=== PATIENT | male | born 1990 | race Hispanic/Latino ===

== ENCOUNTER 2018-07-29 21:51 | Emergency (ER) | payer OTHER ==
[~2018-07-29] VITALS: Ht 170.2 cm; Wt 93.0 kg
--- OUTSIDE RECORDS SUMMARY | 2018-07-29 21:54 | XMS REPORT | Summary of Care ---
Author Author [facility] Organization [facility] Address Unknown Phone Unavailable Encounter MARYCRUZ Bar(CHARLEY) [id number] Date(s): 02/20/15 - 02/21/15 [facility] [address] [place] [address]- Discharge Diagnosis: Acute back pain Discharge Diagnosis: Lumbar strain Discharge Disposition: Home Attending Physician: Orlando Shelton MD Vital Signs Most recent to 1 oldest [Reference Range]: Temperature Oral 97.7 DegF [96.4-99.1 DegF] (02/20/15 10:26 PM) Most recent to 1 oldest [Reference Range]: Blood Pressure 147/99 mmHg [90-140/60-90 mmHg] *HI* (02/20/15 10:26 PM) Most recent to 1 oldest [Reference Range]: Respiratory Rate 18 BRMIN [14-20 BRMIN] (02/20/15 10:26 PM) Most recent to 1 oldest [Reference Range]: Peripheral Pulse 87 bpm Rate [60-100 bpm] (02/20/15 10:26 PM) Most recent to 1 oldest [Reference Range]: Weight 81.818 kg (02/20/15 10:26 PM) Problem List No data available for this section Allergies, Adverse Reactions, Alerts Substance Reaction Severity Status NKDA Active Medications Ativan 1 mg, Route: IVP, Drug form: INJ, ONCE, Dosing Weight 81.818, kg, Priority: STAT , Start date: 02/21/15 5:56:00, Stop date: 02/21/15 5:56:00 Start Date: 02/21/15 Stop Date: 02/21/15 Status: Completed Flexeril 10 mg oral tablet 10 mg, PO, TID, PRN Muscle Spasm, X 10 day, # 30 tab, 0 Refill(s) Start Date: 02/21/15 Stop Date: 03/03/15 Status: Ordered morphine Sulfate 4 mg, 2 mL, Route: IVP, Drug form: INJ, ONCE, Dosing Weight 81.818, kg, Priority : STAT, Start date: 02/20/15 23:41:00, Stop date: 02/20/15 23:41:00 Notes: (Same as:MORPhine Sulfate) Start Date: 02/20/15 Stop Date: 02/21/15 Status: Completed Ultram 50 mg oral tablet 50 mg=1 tab, PO, Q4H, PRN pain, X 3 day, # 20 tab, 0 Refill(s) Start Date: 02/21/15 Stop Date: 02/24/15 Status: Ordered Zofran 4 mg, 2 mL, Route: IVP, Drug form: INJ, ONCE, Dosing Weight 81.818, kg, Priority : STAT, Start date: 02/20/15 23:41:00, Stop date: 02/20/15 23:41:00 Notes: (Same as: Zofran) MEDICATION WASTE Product Size: 4 mgProduct Was charlette: ___ mg Start Date: 02/20/15 Stop Date: 02/21/15 Status: Completed Results ELECTROLYTES Most recent to 1 oldest [Reference Range]: Sodium Lvl [135-145 137 mEq/L mEq/L] (02/21/15 12:01 AM) Potassium Lvl 3.8 mEq/L [3.5-5.1 mEq/L] (02/21/15 12:01 AM) Chloride Lvl [95-109 105 mEq/L mEq/L] (02/21/15 12:01 AM) CO2 [24-32 mEq/L] 25 mEq/L (02/21/15 12:01 AM) AGAP [10.0-20.0 10.8 mEq/L mEq/L] (02/21/15 12:01 AM) CHEM PANEL Most recent to 1 oldest [Reference Range]: Creatinine Lvl 1.0 mg/dL [0.5-1.4 mg/dL] (02/21/15 12:01 AM) eGFR 103 mL/min/1.73m2 1 *NA* (02/21/15 12:01 AM) BUN [7-22 mg/dL] 20 mg/dL (02/21/15:01 AM) Glucose Lvl [70-99 103 mg/dL mg/dL] *HI* (02/21/15: AM) Calcium Lvl 8.8 mg/dL [8.5-10.5 mg/dL] (02/21/15:01 AM) 1Result Comment: The eGFR is calculated using the CKD-EPI formula. In most young, healthy individuals the eGFR will be >90 mL/min/1.73m2. The eGFR declines with age. An eGFR of 60-89 may be normal in some populations, particularly the elderly, for whom the CKD-EPI formula has not been extensively validated. Use of the eGFR is not recommended in the following populations: Individuals with unstable creatinine concentrations, including patients and those with serious co-morbid conditions. Patients with extremes in muscle mass or diet. The data above are obtained from the National Kid[employer] Disease Education Program ( NKDEP) which additionally recommends that when the eGFR is used in patients with extremes of body mass index for purposes of drug dosing, the eGFR should be mul tiplied by the estimated BMI. HEMATOLOGY Most recent to 1 oldest [Reference Range]: WBC [3.7-10.4 K/CMM] 9.6 K/CMM (02/21/15 12:01 AM) RBC [4.70-6.10 5.73 M/CMM M/CMM] (02/21/15:01 AM) Hgb [14.0-18.0 g/dL] 17.0 g/dL (02/21/15:01 AM) Hct [42.0-54.0 %] 50.1 % (02/21/15:01 AM) MCV [80.0-94.0 fL] 87.3 fL (02/21/15:01 AM) MCH [27.0-31.0 pg] 29.6 pg (02/21/15:01 AM) MCHC [32.0-36.0 33.9 g/dL g/dL] (02/21/15: AM) RDW [11.5-14.5 %] 12.8 % (02/21/15: AM) Platelet [133-450 90 K/CMM K/CMM] *LOW* (8/20/15 12:01 AM) MPV [7.4-10.4 fL] 11.8 fL *HI* (02/21/15:01 AM) Segs [45.0-75.0 %] 65.5 % (02/21/15 12:01 AM) Lymphocytes 25.3 % [20.0-40.0 %] (02/21/15:01 AM) Monocytes [2.0-12.0 6.8 % %] (02/21/15 12:01 AM) Eosinophils [0.0-4.0 1.7 % %] (02/21/15:01 AM) Basophils [0.0-1.0 0.7 % %] (02/21/15:01 AM) Segs-Bands # 6.3 K/CMM [1.5-8.1 K/CMM] (02/21/15 12:01 AM) Lymphocytes # 2.4 K/CMM [1.0-5.5 K/CMM] (02/21/15:01 AM) Monocytes # [0.0-0.8 0.7 K/CMM K/CMM] (02/21/15 12:01 AM) Eosinophils # 0.2 K/CMM [0.0-0.5 K/CMM] (02/21/15 12:01 AM) Basophils # [0.0-0.2 0.1 K/CMM K/CMM] (02/21/15 12:01 AM) RBC Morph Normal (02/21/15 12:01 AM) Plt Morph See Note (02/21/15:01 AM) Large Plt [None Moderate Seen] *ABN* (02/21/15:01 AM) Immunizations No data available for this section Procedures No data available for this section Social History Social History Type Response Smoking Status Never smoker; Exposure to Tobacco Smoke None; Cigarette Smoking Last 365 Days No; Reg Smoking Cessation Counseling No Assessment and Plan No data available for this section
--- OUTSIDE RECORDS SUMMARY | 2018-07-29 21:54 | XMS REPORT | Continuity of Care Document ---
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 Value Date Comments Source Respitory Rate 19 12/09/2015 [facility] Systolic (mm Hg) 119 12/09/2015 [facility] Diastolic (mm Hg) 56 12/09/2015 [facility] Temperature Oral (F) 97.4 F 12/09/2015 [facility] Systolic (mm Hg) 119 12/09/2015 [facility] Diastolic (mm Hg) 77 12/09/2015 [facility] Respitory Rate 15 12/09/2015 [facility] Systolic (mm Hg) 112 12/09/2015 [facility] Diastolic (mm Hg) 64 12/09/2015 [facility] Respitory Rate 17 12/09/2015 [facility] Temperature Oral (F) 97.4 F 12/09/2015 [facility] Temperature Oral (F) 97.5 F 12/08/2015 [facility] Heart Rate 102 12/08/2015 [facility] Weight 81.818 12/08/2015 [facility] Heart Rate 98 12/08/2015 [facility] Height 172.72 cm 12/08/2015 [facility] BMI Calculated 27.43 12/08/2015 [facility] Temperature Oral (F) 98.2 F 12/08/2015 [facility] Heart Rate 78 12/08/2015 [facility] Respitory Rate 18 12/08/2015 [facility] Systolic (mm Hg) 142 12/08/2015 [facility] Diastolic (mm Hg) 81 12/08/2015 [facility] Heart Rate 80 12/07/2015 [facility] Respitory Rate 18 12/07/2015 [facility] Weight 86.364 12/07/2015 [facility] Systolic (mm Hg) 147 12/07/2015 [facility] Diastolic (mm Hg) 87 12/07/2015 [facility] Height 167.64 cm 12/07/2015 [facility] Temperature Oral (F) 98.3 F 12/07/2015 [facility] BMI Calculated 30.73 12/07/2015 [facility] Weight 100 09/25/2015 [facility] BMI Calculated 35.58 09/25/2015 [facility] Respitory Rate 18 09/25/2015 [facility] Systolic (mm Hg) 148 09/25/2015 [facility] Diastolic (mm Hg) 86 09/25/2015 [facility] Heart Rate 79 09/25/2015 [facility] Height 167.64 cm 09/25/2015 [facility] Temperature Oral (F) 98.8 F 09/25/2015 [facility] Temperature Oral (F) 98.2 F 05/22/2015 [facility] Systolic (mm Hg) 119 05/22/2015 [facility] Diastolic (mm Hg) 72 05/22/2015 [facility] Respitory Rate 18 05/22/2015 [facility] Heart Rate 69 05/22/2015 [facility] Temperature Oral (F) 98.7 F 05/22/2015 [facility] Heart Rate 72 05/22/2015 [facility] Systolic (mm Hg) 122 05/22/2015 [facility] Diastolic (mm Hg) 78 05/22/2015 [facility] Respitory Rate 20 05/22/2015 [facility] Weight 88.636 05/22/2015 [facility] Weight 81.818 02/21/2015 [facility] Temperature Oral (F) 97.7 F 02/21/2015 [facility] Heart Rate 87 02/21/2015 [facility] Respitory Rate 18 02/21/2015 [facility] Systolic (mm Hg) 147 02/21/2015 [facility] Diastolic (mm Hg) 99 02/21/2015 [facility] Encounters Location Location Details Encounter Type Encounter Number Reason For Visit Attending Provider ADM Date DC Date Status Source [facility] [id number] Orlando Cat 02/21/2015 02/21/2015 [facility] [id number] Kyaw Wilson 05/22/2015 05/22/2015 [facility] [id number] Obey Hendrickson 09/25/2015 09/25/2015 [facility] [id number] Camilo Doyle 12/07/2015 12/08/2015 [facility] Inpatient [id number] Camilo Doyle 12/08/2015 12/09/2015 [facility] Procedures Procedure Code Date Perfomer Comments Source
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
--- OUTSIDE RECORDS SUMMARY | 2018-07-29 21:54 | XMS REPORT | Summary of Care ---
Author Author [facility] Organization [facility] Address Unknown Phone Unavailable Encounter MARYCRUZ Bar(CHARLEY) [id number] Date(s): 12/07/15 - 12/07/15 [facility] [address] [place] [address]- [phone] Discharge Disposition: DC[facility] to [facility] Attending Physician: Camilo Doyle MD Vital Signs Most recent to 1 2 oldest [Reference Range]: Height 167.64 cm (12/07/15 4:14 PM) Temperature Oral 98.2 DegF 98.3 DegF [96.4-99.1 DegF] (12/07/15 7:15 PM) (12/07/15 4:14 PM) Blood Pressure 142/81 mmHg 147/87 mmHg [90-140/60-90 mmHg] *HI* *HI* (12/07/15 7:15 PM) (12/07/15 4:14 PM) Respiratory Rate 18 BRMIN 18 BRMIN [14-20 BRMIN] (12/07/15 7:15 PM) (12/07/15 4:14 PM) Peripheral Pulse 78 bpm 80 bpm Rate [60-100 bpm] (12/07/15 7:15 PM) (12/07/15 4:14 PM) Weight 86.364 kg (12/07/15 4:14 PM) Body Mass Index 30.73 m2 (12/07/15 4:14 PM) Problem List Condition Effective Dates Status Health Status Informant Cerebral Active palsy(Confirmed) Allergies, Adverse Reactions, Alerts Substance Reaction Severity Status shellfish Active Medications *Calcium gluconate 2.5% topical gel (compounded) *Calcium gluconate 2.5% topical gel (compounded), 50 mL, Drug form: MISC, Route: TOP, PRN, PRN Other -See Comment, 12/07/15 17:52:00 CDT, Stop date: 12/08/15 17 :51:00 CDT Start Date: 12/07/15 Stop Date: 12/07/15 Status: Discontinued calcium gluconate + Sodium Chloride 0.9% IV 50 mL 1,000 mg, 10 mL, Route: IVPB, ONCE, Dosing Weight 86.364, kg, Start date: 17:03:00 CDT, Stop date: 12/07/15 17:03:00 CDT Notes: WASTE: F/P - Sink; E - Municipal Trash Bin Start Date: 12/07/15 Stop Date: 12/07/15 Status: Completed calcium gluconate 600 mg + empty container 1 ea + sodium chloride 54 mL Route: Each Affected Eye, Drug form: INJ, PRN, PRN Other -See Comment, Start anika e: 12/07/15 17:35:00 CDT, Duration: 2 hr, Stop date: 12/07/15 19:45:00 CDT Notes: WASTE: F/P - Sink; E - Municipal Trash Bin Start Date: 12/07/15 Stop Date: 12/07/15 Status: Completed hydromorphone 1 mg, Route: IM, ONCE, Dosing Weight 86.364, kg, Priority: STAT, Start date: 10/18 16:46:00 CDT, Stop date: 12/07/15 16:46:00 CDT Start Date: 12/07/15 Stop Date: 12/07/15 Status: Discontinued hydromorphone 1 mg, Route: IV, ONCE, Dosing Weight 86.364, kg, Start date: 12/07/15 16:57:00 C DT, Stop date: 12/07/15 16:57:00 CDT Start Date: 12/07/15 Stop Date: 12/07/15 Status: Completed Sodium Chloride 0.9% (Bolus) IV 1,000 mL, 1000 ml/hr, Infuse Over: 1 hr, Route: IV, 1,000, Drug form: INJ, ONCE, Priority: STAT, Dosing Weight 86.364 kg, Start date: 12/07/15 17:03:00 CDT, Dur ation: 1 doses or times, Stop date: 12/07/15 17:03:00 CDT Start Date: 12/07/15 Stop Date: 12/07/15 Status: Completed Results ELECTROLYTES Most recent to 1 oldest [Reference Range]: Sodium Lvl [135-145 139 mEq/L mEq/L] (12/07/15 5:21 PM) Potassium Lvl 4.0 mEq/L [3.5-5.1 mEq/L] (12/07/15 5:21 PM) Chloride Lvl [95-109 103 mEq/L mEq/L] (12/07/15 5:21 PM) CO2 [24-32 mEq/L] 29 mEq/L (12/07/15 5:21 PM) AGAP [10.0-20.0 11.0 mEq/L mEq/L] (12/07/15 5:21 PM) CHEM PANEL Most recent to 1 oldest [Reference Range]: Creatinine Lvl 1.20 mg/dL [0.50-1.40 mg/dL] (12/07/15 5:21 PM) eGFR 82 mL/min/1.73m2 1 *NA* (12/07/15 5:21 PM) BUN [7-22 mg/dL] 13 mg/dL (12/07/15 5:21 PM) B/C Ratio [6-25] 11 (12/07/15 5:21 PM) Glucose Lvl [70-99 92 mg/dL mg/dL] (12/07/15 5:21 PM) Total Protein 7.7 g/dL [6.4-8.4 g/dL] (12/07/15 5:21 PM) Albumin Lvl [3.5-5.0 4.1 g/dL g/dL] (12/07/15 5:21 PM) Globulin [2.0-4.0 3.6 g/dL g/dL] (12/07/15 5:21 PM) A/G Ratio [0.7-1.6] 1.1 (12/07/15 5:21 PM) Calcium Lvl 8.4 mg/dL [8.5-10.5 mg/dL] *LOW* (12/07/15 5:21 PM) ALT [0-65 unit/L] 56 unit/L (12/07/15 5:21 PM) AST [0-37 unit/L] 25 unit/L (12/07/15 5:21 PM) Alk Phos [39-136 79 unit/L unit/L] (12/07/15 5:21 PM) Bili Total [0.2-1.3 0.5 mg/dL mg/dL] (12/07/15 5:21 PM) 1Result Comment: The eGFR is calculated using [...] 1 oldest [Reference Range]: WBC [3.7-10.4 K/CMM] 9.2 K/CMM (12/07/15 5:21 PM) RBC [4.70-6.10 6.12 M/CMM M/CMM] *HI* (12/07/15 5:21 PM) Hgb [14.0-18.0 g/dL] 17.2 g/dL (12/07/15 5:21 PM) Hct [42.0-54.0 %] 52.5 % (12/07/15 5:21 PM) MCV [80.0-94.0 fL] 85.8 fL (12/07/15 5:21 PM) MCH [27.0-31.0 pg] 28.1 pg (12/07/15 5:21 PM) MCHC [32.0-36.0 32.7 g/dL g/dL] (12/07/15 5:21 PM) RDW [11.5-14.5 %] 13.2 % (12/07/15 5:21 PM) Platelet [133-450 81 K/CMM K/CMM] *LOW* (12/07/15 5:21 PM) MPV [7.4-10.4 fL] 12.1 fL *HI* (12/07/15 5:21 PM) Segs [45.0-75.0 %] 63.1 % (12/07/15 5:21 PM) Lymphocytes 24.4 % [20.0-40.0 %] (12/07/15 5:21 PM) Monocytes [2.0-12.0 9.4 % %] (12/07/15 5:21 PM) Eosinophils [0.0-4.0 2.5 % %] (12/07/15 5:21 PM) Basophils [0.0-1.0 0.6 % %] (12/07/15 5:21 PM) Segs-Bands # 5.8 K/CMM [1.5-8.1 K/CMM] (12/07/15 5:21 PM) Lymphocytes # 2.2 K/CMM [1.0-5.5 K/CMM] (12/07/15 5:21 PM) Monocytes # [0.0-0.8 0.9 K/CMM K/CMM] *HI* (12/07/15 5:21 PM) Eosinophils # 0.2 K/CMM [0.0-0.5 K/CMM] (12/07/15 5:21 PM) Basophils # [0.0-0.2 0.1 K/CMM K/CMM] (12/07/15 5:21 PM) RBC Morph Normal (12/07/15 5:21 PM) Large Plt [None Moderate Seen] *ABN* (12/07/15 5:21 PM) Immunizations Vaccine Date Refusal Reason diphtheria/pertussis, acel/tetanus adult 12/08/15 Procedures No data available for this section Social History Social History Type Response Smoking Status Current some day smoker; Type: Cigarettes; Lives with someone who smokes; Cigarette Smoking Last 365 Days No; Reg Smoking Cessation Counseling No Assessment and Plan No data available for this section
--- OUTSIDE RECORDS SUMMARY | 2018-07-29 21:54 | XMS REPORT | Summary of Care ---
Author Author [facility] Organization [facility] Address Unknown Phone Unavailable Encounter MARYCRUZ Bar(CHARLEY) [id number] Date(s): 05/21/15 - 05/22/15 [facility] [address] [place] [address]- Discharge Diagnosis: Acute pharyngitis, unspecified Discharge Disposition: Home Attending Physician: Kyaw Wilson MD Vital Signs Most recent to 1 2 oldest [Reference Range]: Temperature Oral 98.2 DegF 98.7 DegF [96.4-99.1 DegF] (05/22/15 12:22 AM) (05/21/15 10:02 PM) Blood Pressure 119/72 mmHg 122/78 mmHg [90-140/60-90 mmHg] (05/22/15 12:22 AM) (05/21/15 10:02 PM) Respiratory Rate 18 BRMIN 20 BRMIN [14-20 BRMIN] (05/22/15 12:22 AM) (05/21/15 10:02 PM) Peripheral Pulse 69 bpm 72 bpm Rate [60-100 bpm] (05/22/15 12:22 AM) (05/21/15 10:02 PM) Weight 88.636 kg (05/21/15 10:02 PM) Problem List Condition Effective Dates Status Health Status Informant Cerebral Active palsy(Confirmed) Allergies, Adverse Reactions, Alerts Substance Reaction Severity Status NKDA Active Medications dexamethasone 8 mg, Route: IM, ONCE, Dosing Weight 88.636, kg, Priority: STAT, Start date: 22:15:00, Stop date: 05/21/15 22:15:00 Start Date: 05/21/15 Stop Date: 05/21/15 Status: Completed ketOROLAC 60 mg, Route: IM, Drug form: INJ, ONCE, Dosing Weight 88.636, kg, Priority: STAT , Start date: 05/21/15 22:15:00, Stop date: 05/21/15 22:15:00 Start Date: 05/21/15 Stop Date: 05/21/15 Status: Completed Results RAPID Most recent to 1 oldest [Reference Range]: Grp A Strep Scr Negative [Negative] (05/21/15 11:04 PM) Immunizations No data available for this section Procedures No data available for this section Social History Social History Type Response Smoking Status Never smoker; Exposure to Tobacco Smoke None; Cigarette Smoking Last 365 Days No; Reg Smoking Cessation Counseling No Assessment and Plan No data available for this section
--- OUTSIDE RECORDS SUMMARY | 2018-07-29 21:54 | XMS REPORT | Summary of Care ---
Author Author [facility] Organization [facility] Address Unknown Phone Unavailable Encounter MARYCRUZ Bar(CHARLEY) [id number] Date(s): 09/24/15 - 09/25/15 [facility] [address] [place] [address]- Discharge Disposition: Elopement Attending Physician: Obey Hendrickson MD Vital Signs Most recent to 1 oldest [Reference Range]: Height 167.64 cm (09/24/15 8:51 PM) Temperature Oral 98.8 DegF [96.4-99.1 DegF] (09/24/15 8:51 PM) Blood Pressure 148/86 mmHg [90-140/60-90 mmHg] *HI* (09/24/15 8:51 PM) Respiratory Rate 18 BRMIN [14-20 BRMIN] (09/24/15 8:51 PM) Peripheral Pulse 79 bpm Rate [60-100 bpm] (09/24/15 8:51 PM) Weight 100 kg (09/24/15 8:51 PM) Body Mass Index 35.58 m2 (09/24/15 8:51 PM) Problem List Condition Effective Dates Status Health Status Informant Cerebral Active palsy(Confirmed) Allergies, Adverse Reactions, Alerts Substance Reaction Severity Status NKDA Active Medications No data available for this section Results No data available for this section Immunizations No data available for this section Procedures No data available for this section Social History Social History Type Response Smoking Status Never smoker; Exposure to Tobacco Smoke None; Cigarette Smoking Last 365 Days No; Reg Smoking Cessation Counseling No Assessment and Plan No data available for this section
[2018-07-29] MEDS ORDERED: ACETAMINOPHEN 325 MG TAB PO ONE (22:15)
[2018-07-29] MEDS ORDERED: ONDANSETRON HCL INJ 2MG/ML 2ML 2 MG/ML VIAL IV PRN (22:15)
[2018-07-29] MEDS ORDERED: IBUPROFEN 200 MG TAB PO SCH (22:15)
== END 2018-07-29 22:38 | disposition home or self-care (01) ==
LOC: FSED 21:51
DX: R50.9 Fever, unspecified (principal); R53.1 Weakness; J11.1 Influenza due to unidentified influenza virus with other respiratory manifestations; F17.210 Nicotine dependence, cigarettes, uncomplicated
CPT/HCPCS: 87400; 99283